=== PATIENT | female | born 1985 | race Caucasian/White ===

== ENCOUNTER 2016-06-01 08:22 | Inpatient (IN) | payer OTHER ==
[~2016-06-01] VITALS: Ht 172.7 cm; Wt 64.0 kg
[2016-06-01] VITALS (22 sets, daily range): BP systolic 89–133; BP diastolic 51–78; PULSE 51–70; RESP 17–56; TEMP 97.8–98; O2SAT 97
[~2016-06-01 08:22] MED LIST: PERC5TAB12 PO
[2016-06-01] MEDS ORDERED: LACTATED RINGER'S 1000 ML INJ 1,000 ML IV PRN (09:18)
[2016-06-01] MEDS ORDERED: LACTATED RINGER'S 1000 ML INJ 1,000 ML IV SCH (09:18)
[2016-06-01] MEDS ORDERED: SODIUM CHLORID 0.9% 500 ML INJ 500 ML IV PRN (09:30)
[2016-06-01] MEDS ORDERED: OXYTOCIN 30 UNITS-500ML PREMIX 500 ML IV SCH (09:30)
[2016-06-01] MEDS ORDERED: LIDOCAINE HCL 1% 50 ML VIAL I-DERMAL PRN (09:30)
[2016-06-01] MEDS ORDERED: OXYTOCIN 30 UNITS-500ML PREMIX 500 ML IV ONE (09:30)
[2016-06-01] MEDS ORDERED: CITRIC ACID-SODIUM CITRATE LIQ 30 ML UDC PO SCH (09:30)
[2016-06-01] MEDS ORDERED: LIDOCAINE HCL 1% 50 ML VIAL INFIL PRN (09:30)
[2016-06-01] MEDS ORDERED: PENICILLIN G POTASSIUM INJ 5,000,000 UNITS in SODIUM CHLORIDE 0.9% INJ 100 ML IV ONE (09:30)
[2016-06-01] MEDS ORDERED: MINERAL OIL 10 ML VIAL TOPICAL PRN (09:30)
[2016-06-01 09:38] LABS: AUTOMATED NEUTROPHIL # 4.2 TH/MM3 (1.8-7.7); BASOPHIL % 0.6 % (0.0-2.0); EOSINOPHIL % 0.5 % (0.0-4.0); HEMATOCRIT 40.4 % (35.0-46.0); HEMO FLAGS DIFF FINAL; LYMPH % 37.2 % (9.0-44.0); LYMPHOCYTE # 2.8 TH/MM3 (1.0-4.8); MEAN CORPUSCULAR HEMOGLOBIN 30.4 PG (27.0-34.0); MEAN CORPUSCULAR HGB CONC 34.2 % (32.0-36.0); MONO % 6.6 % (0.0-8.0); NEUT % 55.1 % (16.0-70.0); PLATELET COUNT 161 TH/MM3 (150-450); RED BLOOD COUNT 4.55 MIL/MM3 (4.00-5.30); RED CELL DISTRIBUTION WIDTH 13.7 % (11.6-17.2); WHITE BLOOD COUNT 7.6 TH/MM3 (4.0-11.0)
[2016-06-01] MEDS ORDERED: SODIUM CHLOR 0.9% 1000 ML INJ 1,000 ML IV PRN (09:38)
[2016-06-01 10:48] LABS: BLOOD, URINE NEG (NEG); COMMENT (UR) CULT NOT INDICATED; CULTURE IF INDICATED CULT NOT INDICATED; GLUCOSE,URINE NEG (NEG); KETONE, URINE NEG (NEG); MUCUS URINE FEW /lpf (OCC); NITRITE,URINE NEG (NEG); PH, URINE 6.5 (5.0-8.5); SQUAMOUS EPITHELIAL CELL URINE 9 /hpf (0-5); URINE COLOR YELLOW (YELLW/STRAW)
[2016-06-01] MEDS ORDERED: fentaNYL 2MCG-BUPIV 0.125% INJ 100 ML ONE (13:15)
[2016-06-01] MEDS ORDERED: ePHEDrine/NS 50 MG/5 ML SYR ONE (13:37)
[2016-06-01] MEDS ORDERED: PENICILLIN G POTASSIUM INJ 2,500,000 UNITS in SODIUM CHLORIDE 0.9% INJ 100 ML IV SCH (14:00)
--- NOTE | 2016-06-01 14:03 | MH ---
cc: RODRIGO DICKERSON M.D. DATE OF ADMISSION: 06/01/2016 HISTORY OF PRESENT ILLNESS A 30-year-old white female, 3, para 1, who comes in 39 weeks for induction of labor. The patient is group-B strep positive. She is 3 cm dilated, cervix 70% effaced, posterior, soft, -2 presentation. PAST MEDICAL HISTORY None. PAST SURGICAL HISTORY None. OB HISTORY One vaginal and one miscarriage. STERILE PREPARATION TECHNICIAN HISTORY History of an abnormal Pap smear, but her last Pap smear was normal. MEDICATIONS None. ALLERGIES None. SOCIAL HISTORY She does not smoke, drink or use drugs. PHYSICAL EXAMINATION VITAL SIGNS: Stable and afebrile. NECK: Thyroid palpably normal. HEART: Regular rate and rhythm without murmur or gallop. LUNGS: Clear to auscultation bilaterally. ABDOMEN: Soft, nontender, nondistended. Gravid uterus. PELVIC: Cervix is 3, 70, -2, soft, posterior. EXTREMITIES: Lower extremities without edema. IMPRESSION Our impression at this time is 39-week intrauterine , group B-strep positive. PLAN She will receive prophylaxis with penicillin. She will be augmented with Pitocin and ruptured membranes as needed. The patient is aware of induction and the risks associated. MD KEITH Christensen/PRANAV /1:32 PM /1:57 PM
--- NOTE | 2016-06-01 15:35 | PD.OB.DELI ---
Delivery Date: Jun 01, 2016 Anesthesia: Epidural Episiotomy: None Vaginal Delivery: Normal, Spontaneous Presentation: Occiput anterior Nuchal Cord: None Infant: Female, Single One Minute : 8 Five Minute : 8 Weight: 7# 14 oz Infant Care: Suctioned, Spontaneous crying, Responded to stimulation Placenta: Spontaneous delivery, Intact, 3 vessel cord Laceration: Perineal laceration, 1 deg Repair: Chromic interrupted Thaddeus Corral MD Jun 01, 2016 15:35
[2016-06-01] MEDS ORDERED: ONDANSETRON ODT 4 MG TAB PO PRN (15:45)
[2016-06-01] MEDS ORDERED: ZOLPIDEM TARTRATE 5 MG TAB PO PRN (15:45)
[2016-06-01] MEDS ORDERED: ACETAMINOPHEN 325 MG TAB PO PRN (15:45)
[2016-06-01] MEDS ORDERED: SODIUM CHLORIDE 0.9% FLUSH 5 ML FLUSH IV PRN (15:45)
[2016-06-01] MEDS ORDERED: ALUMINUM/MAGNESIUM/SIMETH 30 ML CUP PO PRN (15:45)
[2016-06-01] MEDS ORDERED: DOCUSATE SODIUM 50 MG/SENNA 8.6 MG TAB PO PRN (15:45)
[2016-06-01] MEDS ORDERED: ePHEDrine/NS 50 MG/5 ML SYR IV PRN (16:00)
[2016-06-01] MEDS ORDERED: MEASLES, MUMPS, RUBELLA VACCINE 0.5 ML VIAL SQ ONE (16:00)
[2016-06-01] MEDS ORDERED: NO SYSTEM NARCOTICS XX PRN (16:00)
[2016-06-01] MEDS ORDERED: DO NOT ADMINISTER ANTICOAGULANTS XX PRN (16:00)
[2016-06-01] MEDS ORDERED: DIPHTH/TETANUS/ACEL PERTUSSIS (BOOSTER) 0.5 ML VIAL/PFS IM ONE (16:00)
[2016-06-01] MEDS ORDERED: fentaNYL 2MCG-BUPIV 0.125% INJ 100 ML EPIDURAL SCH (16:00)
--- NOTE | 2016-06-01 17:07 | HHI.DCPOC ---
Discharge Care Plan Diagnosis: (1) Spontaneous vaginal delivery Report Symptoms to Your Doctor -Temperate above 100.5 degrees -Redness, of incision or excessive or foul smelling drainage -Unusual pain or calf pain -Increased vaginal bleeding -Painful or difficulty urinating -Feelings of extreme sadness or anxiety after 2 weeks Goals to Promote Your Health * To prevent worsening of your condition and complications * To maintain your health at the optimal level Directions to Meet Your Goals Take your medications as prescribed Follow your dietary instruction Follow activity as directed Ensure plenty of rest for recovery Drink fluids for hydration Keep your appointments as scheduled Take your immunizations and boosters as scheduled If your symptoms worsen call your PCP, if no PCP go to Urgent Care Center or Emergency Room Smoking is Dangerous to Your Health. Avoid second hand smoke Call the 24-hour crisis hotline for domestic abuse at Thaddeus Corral MD Jun 01, 2016 17:07
[2016-06-01] MEDS ORDERED: PREN29TA PO (18:02)
[2016-06-01] MEDS: BENZOCAINE 20% TOPICAL SPRAY 60 ML CAN TOPICAL PRN (18:04)
[2016-06-01] MEDS: IBUPROFEN 600 MG TAB PO PRN ×2 (18:04→23:59)
[2016-06-01] MEDS: WITCH HAZEL 50%/GLYCERIN 12.5% 40 PAD JAR TOPICAL PRN (18:04)
[2016-06-02] MEDS: BENZOCAINE 20% TOPICAL SPRAY 60 ML CAN TOPICAL PRN (07:52)
[2016-06-02] MEDS: WITCH HAZEL 50%/GLYCERIN 12.5% 40 PAD JAR TOPICAL PRN (07:52)
[2016-06-02] MEDS: IBUPROFEN 600 MG TAB PO PRN ×3 (07:52→20:21)
[2016-06-02] MEDS: SODIUM CHLORIDE 0.9% FLUSH 5 ML FLUSH IV SCH (07:53)
--- NOTE | 2016-06-02 09:01 | HHI.OB ---
Subjective Post Day: 1 Remarks doing well dc tomorrow Objective Vitals/I&O Vital Signs Date Time Temp Pulse Resp B/P Pulse Ox O2 Delivery O2 Flow Rate FiO2 06/02/16 01:30 16 06/01/16 21:10 97.8 56 97 06/01/16 18:00 55 18 122/73 06/01/16 17:15 56 133/59 06/01/16 14:35 61 120/61 06/01/16 14:35 54 06/01/16 14:30 53 06/01/16 14:30 58 108/56 06/01/16 14:10 65 06/01/16 14:10 53 97/57 06/01/16 14:05 56 06/01/16 14:05 63 113/58 06/01/16 14:00 62 18 115/63 06/01/16 14:00 58 06/01/16 13:55 58 94/64 06/01/16 13:55 60 06/01/16 13:50 68 06/01/16 13:50 70 93/67 06/01/16 13:45 51 06/01/16 13:44 53 128/68 06/01/16 13:41 68 99/54 06/01/16 13:40 66 06/01/16 13:40 60 99/65 06/01/16 13:39 56 103/68 06/01/16 13:35 69 06/01/16 13:35 59 89/51 06/01/16 13:30 60 103/63 06/01/16 13:30 59 06/01/16 13:30 17 06/01/16 13:27 59 109/69 06/01/16 13:25 66 06/01/16 13:25 60 115/71 06/01/16 13:23 63 130/60 06/01/16 12:30 98.0 19 06/01/16 12:27 55 117/78 Objective Remarks GENERAL: Well-nourished, well-developed patient. . ABDOMEN/GI: Abdomen soft, non-tender. Fundus: Firm, non-tender at umbilicus. GENITOURINARY: Light to moderate bleeding. EXTREMITIES: No cyanosis or edema, non-tender, without signs of DVT. Medications and IVs Current Medications Medications (Trade) Dose Ordered Sig/Sienna Route Start Time Stop Time Status Last Admin Miscellaneous Information No systemic narcotics to be given except... UNSCH PRN XX 06/01/16 16:00 06/02/16 15:59 Miscellaneous Information DO NOT ADMINISTER ANY ANTICOAGUL... UNSCH PRN XX 06/01/16 16:00 06/02/16 15:59 (NS Flush) 2 ml BID IV 06/01/16 21:00 (NS Flush) 2 ml UNSCH PRN IV 06/01/16 15:45 (Tylenol) 650 mg Q4H PRN PO 06/01/16 15:45 (Motrin) 600 mg Q6H PRN PO 06/01/16 15:45 06/02/16 07:52 (Americaine 20% Top Spr) 1 spray Q4H PRN TOPICAL 06/01/16 15:45 06/02/16 07:52 (Tucks Pads) 1 applic QID PRN TOPICAL 06/01/16 15:45 06/02/16 07:52 (Susan-Colace) 2 tab Q12H PRN PO 06/01/16 15:45 06/01/16 23:59 (Ambien) 5 mg HS PRN PO 06/01/16 15:45 (Mag-Al Plus Susp Liq) 15 ml Q8H PRN PO 06/01/16 15:45 (Zofran Odt) 4 mg Q6H PRN PO 06/01/16 15:45 (Flu (Quadrivalent) Vaccine Inj) 0.5 ml ONCE ONCE IM 06/02/16 10:00 06/02/16 10:01 Assessment/Plan Problem List: (1) Spontaneous vaginal delivery Discharge Planning doing well Thaddeus Corral MD Jun 02, 2016 09:00
[2016-06-02] MEDS ORDERED: PERC5TAB12 PO (09:04)
[2016-06-02] MEDS ORDERED: oxyCODONE/ACETAMINOPHEN 5 MG/325 MG TAB PO PRN ×2 (09:15)
[2016-06-02] MEDS ORDERED: INFLUENZA VIRUS VACCINE (QUADRIVALENT) 0.5 ML SYR IM ONE (10:00)
[2016-06-02 21:30] VITALS: RESP 18
--- NOTE | 2016-06-03 07:14 | HHI.OB ---
Subjective Post Day: 2 Remarks doing well Objective Vitals/I&O Vital Signs Date Time Temp Pulse Resp B/P Pulse Ox O2 Delivery O2 Flow Rate FiO2 06/02/16 21:30 18 Objective Remarks GENERAL: Well-nourished, well-developed patient. . ABDOMEN/GI: Abdomen soft, non-tender. Fundus: Firm, non-tender at umbilicus. GENITOURINARY: Light to moderate bleeding. EXTREMITIES: No cyanosis or edema, non-tender, without signs of DVT. Medications and IVs Current Medications Medications (Trade) Dose Ordered Sig/Sienna Route Start Time Stop Time Status Last Admin (NS Flush) 2 ml BID IV 06/01/16 21:00 (NS Flush) 2 ml UNSCH PRN IV 06/01/16 15:45 (Motrin) 600 mg Q6H PRN PO 06/01/16 15:45 06/02/16 20:21 (Americaine 20% Top Spr) 1 spray Q4H PRN TOPICAL 06/01/16 15:45 06/02/16 07:52 (Tucks Pads) 1 applic QID PRN TOPICAL 06/01/16 15:45 06/02/16 07:52 (Susan-Colace) 2 tab Q12H PRN PO 06/01/16 15:45 06/01/16 23:59 (Ambien) 5 mg HS PRN PO 06/01/16 15:45 (Mag-Al Plus Susp Liq) 15 ml Q8H PRN PO 06/01/16 15:45 (Zofran Odt) 4 mg Q6H PRN PO 06/01/16 15:45 (Percocet 5-325 Mg) 1 tab Q4H PRN PO 06/02/16 09:15 (Percocet 5-325 Mg) 2 tab Q4H PRN PO 06/02/16 09:15 Assessment/Plan Problem List: (1) Spontaneous vaginal delivery Discharge Planning dc [place] Thaddeus Corral MD Jun 03, 2016 07:14
--- NOTE | 2016-06-03 07:16 | HHI.DS ---
Admission Date Jun 01, 2016 at 08:22 Discharge Date: Jun 03, 2016 Admitting Diagnosis Diagnosis: (1) Spontaneous vaginal delivery Diagnosis: Principal Delivery Date: Jun 01, 2016 Vaginal Delivery: Normal, Spontaneous : Female, Single Brief History pt comes in for induction of labor at 39 weeks Hospital Course without difficulty doing well Pt Condition on Discharge: Good Discharge Disposition: Discharge Home Discharge Instructions Diet Instructions: As Tolerated, No Restrictions Activities You Can Perform: Pelvic Rest Follow up Referrals: EMERGENCY COMMUNICATIONS OFFICER - 2 Weeks @ [facility] with Thaddeus Corral MD New Medications: Oxycodone-Acetaminophen (Percocet) 5-325 mg Tab 1-2 TAB PO Q4H PRN PAIN #20 Ref 0 TAB Discontinued Medications: Oxycodone-Acetaminophen 5-325 mg (Percocet 5-325 mg) 5 Mg/325 Mg Tab 1-2 TAB PO Q4H PAIN #20 TAB Thaddeus Corral MD Jun 03, 2016 07:16
[2016-06-03] MEDS: IBUPROFEN 600 MG TAB PO PRN (07:54)
[2016-06-03] MEDS: SODIUM CHLORIDE 0.9% FLUSH 5 ML FLUSH IV SCH (09:00)
== END 2016-06-03 12:30 | disposition home or self-care (01) | DRG 775 ==
LOC: H2EA 08:22 → H1EA 17:48
PROVIDERS: ADMIT Obstetrics & Gynecology; ATTEND Obstetrics & Gynecology
PROC: 10E0XZZ Delivery of Products of Conception, External Approach (ICD-10-PCS; principal; 2016-06-01)
PROC: 10907ZC Drainage of Amniotic Fluid, Therapeutic from Products of Conception, Via Natural or Artificial Opening (ICD-10-PCS; 2016-06-01)
PROC: 3E0S3CZ (ICD-10-PCS; 2016-06-01)
PROC: 00HU33Z Insertion of Infusion Device into Spinal Canal, Percutaneous Approach (ICD-10-PCS; 2016-06-01)
PROC: 0HQ9XZZ Repair Perineum Skin, External Approach (ICD-10-PCS; 2016-06-01)
DX: O80 Encounter for full-term uncomplicated delivery (principal); Z22.330 Carrier of Group B streptococcus; Z37.0 Single live birth; Z3A.39 39 weeks gestation of pregnancy
CPT/HCPCS: 59025; 81001; 85025; 86900; 86901; 90686; 90715; J2540; J2590; J7120; Q2038

== ENCOUNTER → 2016-10-28 | Day surgery (SDC) | payer OTHER ==
[~2016-10-28] MED LIST changes: +BUPIVACAINE/EPINEPHRINE 0.5% PF 30 ML VIAL ONE; +LIDOCAINE 1.5%/EPINEPHrine 1:200,000 PF SOLN 30 ML AMP ONE; +PREN29TA PO; +SODIUM BICARBONATE 8.4% INJ 50 ML ONE; +SODIUM CHLORIDE 0.9% INJ 10 ML ONE
--- NOTE | 2016-10-28 11:03 | TN ---
cc: SEVERO PETERS M.D., JEFFREY D. M.D. 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 PROCEDURE Excision of malignant melanoma with a 7 x 3-1/2 cm elliptical incision double layer closure. ANESTHESIA Local SURGEON Dr. Peters INDICATIONS This is a pleasant 30-year female who was found to have a malignant melanoma. She has had malignant melanoma prior on both her breasts that were treated. Plans were made for above. PROCEDURE The patient was taken to the operating room, placed in the position. After time-out, we used strict local anesthetic. We prepped the area with Betadine. We made an elliptical incision measuring 7 x 3-1/2 cm around the area in question that had been previously biopsied. This is to obtain greater than 1-1/2 cm margins circumferentially. The area was then anesthetized with a Marcaine solution mixed with lidocaine and bicarb. We used approximately 10 cc. We then made the elliptical incision, dissected through the deep subcutaneous tissue and the specimen was marked with a stitch at the 12 o'clock position for orientation. The area in question flaps were then created medially and laterally to allow rotation and mobilization of the tissue and closed in a double layer with a 3-0 Vicryl in the deep layer and a 4-0 Vicryl subcuticular stitch. Steri-Strips applied. Sterile bandage applied. The patient tolerated the procedure well and had no immediate postoperative complications. MD PRAFUL Blake/RULA /10:51 AM /10:59 AM
== END | disposition home or self-care (01) ==
LOC: ESDC 08:55
PROVIDERS: ATTEND Surgery
DX: C43.62 Malignant melanoma of left upper limb, including shoulder (principal)
CPT/HCPCS: 88305